=== PATIENT | female | born 1980 | race Hispanic/Latino ===

== ENCOUNTER 2017-09-03 07:52 | Emergency (ER) | payer OTHER ==
[~2017-09-03] VITALS: Ht 157.5 cm; Wt 94.3 kg
[~2017-09-03 07:52] MED LIST: DICYCLOMINE HCL20 MG PO; PROTONIX40 MG/ML PO
[2017-09-03] MEDS ORDERED: KETOROLAC TROMETHAMINE 30 MG/ML VIAL IV STA (08:07)
[2017-09-03 08:35] LABS: BASOPHILS # (AUTO) 0.1 (0.0-0.1); BASOPHILS % 0.4 % (0.0-1.0); EOSINOPHILS # (AUTO) 0.4 (0.0-0.4); EOSINOPHILS % 3.2 % (0.0-6.0); HEMATOCRIT 42.7 % (34.2-44.1); HEMOGLOBIN 14.9 g/dL (12.0-16.0); LYMPHOCYTES # (AUTO) 2.4 (1.0-3.2); MEAN CORPUSCULAR HEMOGLOBIN 30.2 pg (28-32); MEAN CORPUSCULAR HGB CONC 34.9 g/dL (31-35); MEAN CORPUSCULAR VOLUME 86.4 fL (81-99); MONOCYTES # (AUTO) 0.7 (0.2-0.8); MONOCYTES % 5.5 % (4.4-11.3); NEUTROPHILS # (AUTO) 9.7 (2.1-6.9); NEUTROPHILS % 72.7 % (38.7-80.0); PLATELET COUNT 298 x10e3/uL (140-360); RED BLOOD COUNT 4.94 x10e6/uL (3.6-5.1); RED CELL DISTRIBUTION WIDTH 12.5 % (11.7-14.4)
[2017-09-03 08:36] LABS: BILIRUBIN,URINE NEGATIVE (NEGATIVE); KETONES,URINE NEGATIVE (NEGATIVE); LEUKOCYTE ESTERASE ,URINE NEGATIVE (NEGATIVE); NITRITE,URINE NEGATIVE (NEGATIVE); PROTEIN,URINE DIPSTICK NEGATIVE (NEGATIVE); URINE UROBILINOGEN 0.2 mg/dL (0.2 - 1)
[2017-09-03 08:37] LABS: CLARITY,URINE SL CLOUDY (CLEAR); COLOR,URINE STRAW (YELLOW)
[2017-09-03 08:52] LABS: AMORPHOUS SEDIMENT,URINE RARE (FEW); EPITHELIAL CELLS,URINE FEW /LPF; RBC,URINE 0-5 /HPF (0-5)
[2017-09-03 08:53] LABS: BACTERIA,URINE RARE /HPF
[2017-09-03 08:54] LABS: ALANINE AMINOTRANSFERASE 15 IU/L (0-55); ALBUMIN 3.9 g/dL (3.5-5.0); ALBUMIN/GLOBULIN RATIO 0.9 (0.8-2.0); ALKALINE PHOSPHATASE 108 IU/L (40-150); BLOOD UREA NITROGEN 9 mg/dL (7-26); BUN/CREATININE RATIO 12 (6-25); CALCIUM 9.2 mg/dL (8.4-10.2); CARBON DIOXIDE 22 mmol/L (22-29); CHLORIDE 105 mmol/L (98-107); CREATININE, SERUM 0.74 mg/dL (0.57-1.11); EST GLOMERULAR FILTRATION RATE > 60 ML/MIN (60-); GLUCOSE 112 mg/dL (74-118); SODIUM 136 mmol/L (136-145)
[2017-09-03] MEDS ORDERED: ONDANSETRON HCL INJ 2 MG/ML VIAL IV STA (09:17)
--- NOTE | 2017-09-03 09:21 | Diagnostic Imaging Report ---
PROCEDURE: CT ABDOMEN AND PELVIS WITHOUT CONTRAST TECHNIQUE: The abdomen and pelvis were scanned utilizing a multidetector helical scanner from the diaphragm to the lesser trochanter. No intravenous or oral contrast was administered as per physician request. Coronal and sagittal multiplanar reformations were obtained. COMPARISON: None. INDICATIONS: RIGHT FLANK PAIN FINDINGS: ABSENCE OF INTRAVENOUS CONTRAST DECREASES SENSITIVITY FOR DETECTION OF FOCAL LESIONS AND VASCULAR PATHOLOGY. LOWER THORAX: Normal. Small fat containing hernia along the right posterior diaphragm. HEPATOBILIARY: No focal hepatic lesions. No biliary ductal dilatation. Cholecystectomy. SPLEEN: No splenomegaly. PANCREAS: No focal masses or ductal dilatation. ADRENALS: 2.4 cm left adrenal nodule with internal attenuation measurement of 27.2 Hounsfield units. No right adrenal nodule. KIDNEYS/URETERS: No hydronephrosis, stones, or solid mass lesions. Bilateral subcentimeter fat containing lesions are present in the kidneys, consistent with small angiomyolipomas. Minimal bilateral nonspecific perinephric soft tissue inflammatory changes. PELVIC ORGANS/BLADDER: Hysterectomy. Bilateral ovarian cysts. PERITONEUM / RETROPERITONEUM: No free air or fluid. Minimal inflammatory changes are present in the mesentery. LYMPH NODES: No lymphadenopathy. VESSELS: Unremarkable. GI TRACT: No distention or wall thickening. Normal appendix. Moderate amount of retained feces limits intraluminal evaluation of the colon BONES AND SOFT TISSUES: Unremarkable. IMPRESSION: 1. No acute abnormality of the abdomen and pelvis. 2. Indeterminate left adrenal nodule. CT with adrenal mass protocol may provide additional information for further characterization. 3. Bilateral small renal angiomyolipomas. Dictated by: Pedro Hinson M.D. on 09/03/2017 at 9:20 Electronically approved by: Pedro Hinson M.D. on 09/03/2017 at 9:20
[2017-09-03 09:53] VITALS: BP 116/77
== END 2017-09-03 10:31 | disposition home or self-care (01) ==
LOC: ER 07:52
DX: R10.9 Unspecified abdominal pain (principal); N39.0 Urinary tract infection, site not specified
CPT/HCPCS: 36415; 74176; 80053; 81001; 85025; 87086; 99284; J1885; J2405

== ENCOUNTER 2017-09-04 09:22 | Emergency (ER) | payer OTHER ==
[~2017-09-04] VITALS: Ht 157.5 cm; Wt 94.3 kg
--- OUTSIDE RECORDS SUMMARY | 2017-09-04 09:26 | XMS REPORT | Continuity of Care Document ---
Author Author [facility] Organization [facility] Address [address] [place] [address] Phone Unavailable Care Team Providers Care Necktie Stitcher Name Role Phone EDINSON RAJAN M.D. PCP Insurance Providers Guarantor Mildred Sosa I Address [address] [place] [address] Payer [facility] Policy Number [id number] Subscriber's Name Mildred Sosa I Relationship 18 Self / Same As Patient Group Number [id number] Effective Date 17 Advance Directives Directive Response Recorded Date/Time Does the patient have an advance directive? No 12/21/15 9:34pm If yes, is advance directive on file with [facility]? No 12/21/15 9:34pm If not on file with [facility] will patient provide a copy? No 12/21/15 9:34pm Do you have a Directive to Physician? No 09/03/17 8:18am Do you have a Medical Power of Fork Operator? No 09/03/17 8:18am Do you have an out of hospital Do Not Resuscitate Order? No 09/03/17 8:18am Do you have any special needs we should be aware of? No 09/03/17 8:18am Do you have a support person here with you today? No 09/03/17 8:18am Did patient receive Notice of Privacy Practices? Yes 09/03/17 8:18am Did patient receive patient rights and responsibilities? Yes 09/03/17 8:18am Problems Medical Problem Onset Date Status Gall stones 12/21/2015 Acute Medications Current Home Medications Medication Dose Units Route Directions Days Qty Instructions Start Date Dicyclomine Hcl 20 Mg Tablet 20 Mg Oral Three Times A Day as needed for Abdominal Pain Pantoprazole Sod (Protonix) 40 Mg/Ml Susp 40 Mg Oral Before Breakfast 30 Days 12/24/15 Social History Social History Problem Response Recorded Date/Time Onset Date Status Hx Psychiatric Problems No 12/21/2015 9:34pm Not Applicable Not Applicable Hx Eating Disorder No 12/21/2015 9:34pm Not Applicable Not Applicable Hx Substance Use Disorder No 12/21/2015 9:34pm Not Applicable Not Applicable Hx Depression No 12/21/2015 9:34pm Not Applicable Not Applicable Hx Alcohol Use No 12/21/2015 9:34pm Not Applicable Not Applicable Hx Substance Use Treatment No 12/21/2015 9:34pm Not Applicable Not Applicable Hx Physical Abuse No 12/21/2015 9:34pm Not Applicable Not Applicable Smoking Status Start Date Stop Date Never Smoker Hospital Discharge Instructions No hospital discharge instruction information available. Plan of Care Discharge Date 09/03/17 10:31am Disposition HOME, SELF-CARE Condition at Discharge Stable Instructions/Education Provided Abdominal Pain - Adult Urinary Tract Infection - Women Forms Provided Work/School Excuse Prescriptions See Medication Section Referrals EDINSON RAJAN M.D. Order Date: Call for an appointment Address: [address] [place] [address] [phone] Additional Instructions/Education Take medication as prescribed Follow up with PCP in a couple of days without fail Return to ER as needed Drink plenty of fluids Functional Status No functional status information available. Allergies, Adverse Reactions, Alerts Allergen Type Severity Reaction Status Last Updated Bupropion Allergy Unknown Active 11/30/16 Pineapple Allergy Unknown Throat swelling Active 11/30/16 GADOLLNIUM Allergy Intermediate Active 11/30/16 Immunizations No immunization information available. Vital Signs Acute Vital Signs Vital Response Date/Time Pulse Pulse Rate (adult) 95 bpm (60 - 90) 09/03/2017 9:53am Respiratory Rate 18 bpm (12 - 24) 09/03/2017 9:53am Blood Pressure 116/77 mm Hg 09/03/2017 9:53am Height 5 ft 2 in 09/03/2017 8:00am Weight 208 lb 09/03/2017 8:00am Body Mass Index 38.0 kg/m^2 09/03/2017 8:00am Results Laboratory Results Test Name Result Units Flags Reference Collection Date/Time Result Date/ Time Comments Urine Mucus MANY H RARE 11/30/2016 12:01am 11/30/2016 12:34am Urine Test NEGATIVE NEGATIVE 11/30/2016 12:01am 11/30/2016 12:25am Magnesium Level 2.2 MG/DL H 1.3-2.1 11/30/2016 12:01am 11/30/2016 12: 47am Thyroid Stimulating Hormone (TSH) 2.200 uIU/mL 0.350-4.940 11/30/2016 12 :01am 11/30/2016 1:00am White Blood Count 13.31 x10e3/uL H 4.8-10.8 09/03/2017 8:07am 2017 8:56am Red Blood Count 4.94 x10e6/uL 3.6-5.1 09/03/2017 8:07am 09/03/2017 8: 56am Hemoglobin 14.9 g/dL 12.0-16.0 09/03/2017 8:07am 09/03/2017 8:56am Hematocrit 42.7 % 34.2-44.1 09/03/2017 8:07am 09/03/2017 8:56am Mean Corpuscular Volume 86.4 fL 81-99 09/03/2017 8:07am 09/03/2017 8: 56am Mean Corpuscular Hemoglobin 30.2 pg 28-32 09/03/2017 8:07am 09/03/2017 8:56am Mean Corpuscular Hemoglobin Concent 34.9 g/dL 31-35 09/03/2017 8:07am 09/03/2017 8:56am Red Cell Distribution Width 12.5 % 11.7-14.4 09/03/2017 8:07am 2017 8:56am Platelet Count 298 x10e3/uL 140-360 09/03/2017 8:07am 09/03/2017 8: 56am Neutrophils (%) (Auto) 72.7 % 38.7-80.0 09/03/2017 8:07am 09/03/2017 8: 56am Lymphocytes (%) (Auto) 18.0 % 18.0-39.1 09/03/2017 8:07am 09/03/2017 8: 56am Monocytes (%) (Auto) 5.5 % 4.4-11.3 09/03/2017 8:07am 09/03/2017 8: 56am Eosinophils (%) (Auto) 3.2 % 0.0-6.0 09/03/2017 8:09/03/2017 8: 56am Basophils (%) (Auto) 0.4 % 0.0-1.0 09/03/2017 8:0709/03/2017 8:56am IM GRANULOCYTES % 0.2 % 0.0-1.0 09/03/2017 8:09/03/2017 8:56am Neutrophils # (Auto) 9.7 H 2.1-6.9 09/03/2017 8:09/03/2017 8: 56am Lymphocytes # (Auto) 2.4 1.0-3.2 09/03/2017 8:09/03/2017 8:56am Monocytes # (Auto) 0.7 0.2-0.8 09/03/2017 8:09/03/2017 8:56am Eosinophils # (Auto) 0.4 0.0-0.4 09/03/2017 8:09/03/2017 8:56am Basophils # (Auto) 0.1 0.0-0.1 09/03/2017 8:09/03/2017 8:56am Absolute Immature Granulocyte (auto 0.03 x10e3/uL 0-0.1 09/03/2017 8: 09/03/2017 8:56am Urine Color STRAW YELLOW 09/03/2017 8:09/03/2017 8:37am Urine Clarity SL CLOUDY CLEAR 09/03/2017 8:09/03/2017 8:37am Urine Specific [place] 1.010 1.010-1.025 09/03/2017 8:07am 2017 8:37am Urine pH 5 5 - 7 09/03/2017 8:07am 09/03/2017 8:37am Urine Leukocyte Esterase NEGATIVE NEGATIVE 09/03/2017 8:07am 2017 8:37am Urine Nitrite NEGATIVE NEGATIVE 09/03/2017 8:07am 09/03/2017 8:37am Urine Protein NEGATIVE NEGATIVE 09/03/2017 8:07am 09/03/2017 8:37am Urine Glucose (UA) NEGATIVE NEGATIVE 09/03/2017 8:07am 09/03/2017 8: 37am Urine Ketones NEGATIVE NEGATIVE 09/03/2017 8:07am 09/03/2017 8:37am Urine Urobilinogen 0.2 mg/dL 0.2 - 1 09/03/2017 8:07am 09/03/2017 8: 37am Urine Bilirubin NEGATIVE NEGATIVE 09/03/2017 8:07am 09/03/2017 8: 37am Urine Blood TRACE H NEGATIVE 09/03/2017 8:07am 09/03/2017 8:37am Urine WBC NONE /HPF 0-5 09/03/2017 8:07am 09/03/2017 8:54am Urine RBC 0-5 /HPF 0-5 09/03/2017 8:07am 09/03/2017 8:54am Urine Bacteria RARE /HPF NONE 09/03/2017 8:07am 09/03/2017 8:54am Urine Epithelial Cells FEW /LPF NONE 09/03/2017 8:07am 09/03/2017 8: 54am Urine Amorphous Sediment RARE FEW 09/03/2017 8:07am 09/03/2017 8: 54am Sodium Level 136 mmol/L 136-145 09/03/2017 8:07am 09/03/2017 8:55am Potassium Level 4.0 mmol/L 3.5-5.1 09/03/2017 8:07am 09/03/2017 8:55am Chloride Level 105 mmol/L 98-107 09/03/2017 8:07am 09/03/2017 8:55am Carbon Dioxide Level 22 mmol/L 22-29 09/03/2017 8:07am 09/03/2017 8: 55am Anion Gap 13.0 mmol/L 8-16 09/03/2017 8:07am 09/03/2017 8:55am Blood Urea Nitrogen 9 mg/dL 7-09/03/2017 8:09/03/2017 8:55am Creatinine 0.74 mg/dL 0.57-1.11 09/03/2017 8:0709/03/2017 8:55am BUN/Creatinine Ratio 12 6-09/03/2017 8:09/03/2017 8:55am Estimat Glomerular Filtration Rate > 60 ML/MIN 60- 09/03/2017 8: 8:55am Ranges were taken from the National Kidney Disease Education Program and the National Kid[employer] Foundation literature. Reference ranges: 60 or greater: Normal 16-59 (for 3 consecutive months): Chronic kidney disease 15 or less: Kidney failure Glucose Level 112 mg/dL 74-118 09/03/2017 8:0709/03/2017 8:55am Calcium Level 9.2 mg/dL 8.4-10.2 09/03/2017 8:09/03/2017 8:55am Total Bilirubin 0.6 mg/dL 0.2-1.2 09/03/2017 8:0709/03/2017 8:55am Aspartate Amino Transf (AST/SGOT) 15 IU/L 5-34 09/03/2017 8:2017 8:55am Alanine Aminotransferase (ALT/SGPT) 15 IU/L 0-55 09/03/2017 8:07 8:55am Total Protein 8.2 g/dL H 6.5-8.1 09/03/2017 8:09/03/2017 8:55am Albumin 3.9 g/dL 3.5-5.0 09/03/2017 8:0709/03/2017 8:55am Globulin 4.3 g/dL H 2.3-3.5 09/03/2017 8:09/03/2017 8:55am Albumin/Globulin Ratio 0.9 0.8-2.0 09/03/2017 8:09/03/2017 8: 55am Alkaline Phosphatase 108 IU/L 40-150 09/03/2017 8:09/03/2017 8: 55am Procedures Procedure Status Date Provider(s) Computed tomography of brain without radiopaque contrast Active 11/30/[address] of abdomen and pelvis without contrast Active 09/03/17 CORBIN RIGGINS MD Encounters Encounter Location Arrival/Admit Date Discharge/Depart Date Attending Provider Registered Emergency Room [facility] 09/03/17 7:52am CORBIN RIGGINS MD Departed Emergency Room [facility] 11/29/16 10:24pm 11/30 2:59am BRYAN MOORE MD
--- OUTSIDE RECORDS SUMMARY | 2017-09-04 09:26 | XMS REPORT | Clinical Summary ---
Author Author [facility] Address Unknown Phone Unavailable Care Team Providers Care Community Organizer Name Role Phone PCP Unavailable Allergies Active Allergy Reactions Severity Noted Date Comments Gadolinium-Containing Hives, Itching, Shortness High 05/16/2016 Contrast Media Of Breath Pineapple Anaphylaxis, Hives High 05/16/2016 Current Medications Prescription Sig. Disp. Refills Start End Date Status Date ferrous sulfate 325 (65 Take 325 mg by mouth Active FE) MG tablet daily with breakfast. Active Problems Problem Noted Date Allergic reaction to contrast dye, initial encounter 05/17/2016 Family History Relation Name Status Comments Social History Tobacco Use Types Packs/Day Years Used Date Never Smoker Alcohol Use Drinks/Week oz/Week Comments No Sex Assigned at Date Recorded Not on file Last Filed Vital Signs Not on file Plan of Treatment Not on file Results Not on fileafter 09/03/2016
--- OUTSIDE RECORDS SUMMARY | 2017-09-04 09:26 | XMS REPORT ---
Author Author [facility] Address Unknown Phone Unavailable Care Team Providers Care Nurse Head Name Role Phone CORBIN RIGGINS Unavailable Unavailable Problems This patient has no known problems. Allergies, Adverse Reactions, Alerts This patient has no known allergies or adverse reactions. Medications This patient has no known medications. Results Test Description Test Time Test Comments Text Results Atomic Results Result Comments CT ABDOMEN/PELVIS WO [place] [address] Patient Name: MILDRED SOSA I MR #: [id number] : 1980 Age/Sex: 37/F Req #: [id number] Adm Physician: Ordered by: CORBIN RIGGINS MD Report #: [id number] Location: ER Room/Bed: Procedure: [id number] CT/CT ABDOMEN/PELVIS WO Exam Date: 09/03/17 Exam Time: 0834 REPORT STATUS: Signed PROCEDURE: CT ABDOMEN AND PELVIS WITHOUT CONTRAST TECHNIQUE: The abdomen and pelvis were scanned utilizing a multidetector helical scanner from the diaphragm to the lesser trochanter. No intravenous or oral contrast was administered as per physician request. Coronal and sagittal multiplanar reformations were obtained. COMPARISON: None. INDICATIONS: RIGHT FLANK PAIN FINDINGS: ABSENCE OF INTRAVENOUS CONTRAST DECREASES SENSITIVITY FOR DETECTION OF FOCAL LESIONS AND VASCULAR PATHOLOGY. LOWER THORAX: Normal. Small fat containing hernia along the right posterior diaphragm. HEPATOBILIARY: No focal hepatic lesions. No biliary ductal dilatation. Cholecystectomy. SPLEEN: No splenomegaly. PANCREAS: No focal masses or ductal dilatation. ADRENALS: 2.4 cm left adrenal nodule with internal attenuation measurement of 27.2 Hounsfield units. No right adrenal nodule. KIDNEYS/URETERS: No hydronephrosis, stones, or solid mass lesions. Bilateral subcentimeter fat containing lesions are present in the kidneys, consistent with small angiomyolipomas. Minimal bilateral nonspecific perinephric soft tissue inflammatory changes. PELVIC ORGANS/BLADDER: Hysterectomy. Bilateral ovarian cysts. PERITONEUM / RETROPERITONEUM: No free air or fluid. Minimal inflammatory changes are present in the mesentery. LYMPH NODES: No lymphadenopathy. VESSELS: Unremarkable. GI TRACT: No distention or wall thickening. Normal appendix. Moderate amount of retained feces limits intraluminal evaluation of the colon BONES AND SOFT TISSUES: Unremarkable. IMPRESSION: 1. No acute abnormality of the abdomen and pelvis. 2. Indeterminate left adrenal nodule. CT with adrenal mass protocol may provide additional information for further characterization. 3. Bilateral small renal angiomyolipomas. Dictated by: Ana María Farnsworth M.D. on 09/03/2017 at 9:20 Electronically approved by: Ana María Farnsworth M.D. on 09/03/2017 at 9:20 Dictated By: ANA MARÍA FARNSWORTH MD 9 Transcribed By: JUAN on 09/03/17919 COPY TO: CORBIN RIGGINS MD
[2017-09-04 10:16] LABS: STREPTOCOCCUS GRP A ANTIGEN NEGATIVE (NEGATIVE)
[2017-09-04 10:19] LABS: INFLUENZAE A&B ANTIGEN (RAPID) NEGATIVE (NEGATIVE)
[2017-09-04] MEDS ORDERED: SODIUM CHLORIDE 0.9% 1000ML 1,000 ML IV STA (10:39)
[2017-09-04 11:12] LABS: PREGNANCY TEST, URINE NEGATIVE (NEGATIVE)
[2017-09-04 11:15] LABS: BILIRUBIN,URINE NEGATIVE (NEGATIVE); KETONES,URINE NEGATIVE (NEGATIVE); LEUKOCYTE ESTERASE ,URINE NEGATIVE (NEGATIVE); NITRITE,URINE NEGATIVE (NEGATIVE); PROTEIN,URINE DIPSTICK NEGATIVE (NEGATIVE); URINE UROBILINOGEN 0.2 mg/dL (0.2 - 1)
[2017-09-04 11:17] LABS: CLARITY,URINE CLEAR (CLEAR); COLOR,URINE YELLOW (YELLOW)
[2017-09-04 11:26] LABS: BASOPHILS # (AUTO) 0.1 (0.0-0.1); BASOPHILS % 0.4 % (0.0-1.0); EOSINOPHILS # (AUTO) 0.1 (0.0-0.4); EOSINOPHILS % 0.4 % (0.0-6.0); HEMATOCRIT 40.2 % (34.2-44.1); HEMOGLOBIN 13.8 g/dL (12.0-16.0); LYMPHOCYTES # (AUTO) 2.4 (1.0-3.2); LYMPHOCYTES % 18.5 % (18.0-39.1); MEAN CORPUSCULAR HGB CONC 34.3 g/dL (31-35); MEAN CORPUSCULAR VOLUME 87.4 fL (81-99); MONOCYTES # (AUTO) 0.8 (0.2-0.8); MONOCYTES % 6.6 % (4.4-11.3); NEUTROPHILS # (AUTO) 9.5 (2.1-6.9); NEUTROPHILS % 73.8 % (38.7-80.0); PLATELET COUNT 269 x10e3/uL (140-360); RED CELL DISTRIBUTION WIDTH 12.6 % (11.7-14.4)
[2017-09-04 11:39] LABS: BACTERIA,URINE RARE /HPF; EPITHELIAL CELLS,URINE FEW /LPF
[2017-09-04 11:46] LABS: ALANINE AMINOTRANSFERASE 13 IU/L (0-55); ALBUMIN 3.6 g/dL (3.5-5.0); ALBUMIN/GLOBULIN RATIO 0.9 (0.8-2.0); ALKALINE PHOSPHATASE 108 IU/L (40-150); ANION GAP 13.6 mmol/L (8-16); BLOOD UREA NITROGEN 8 mg/dL (7-26); BUN/CREATININE RATIO 11 (6-25); CALCIUM 8.5 mg/dL (8.4-10.2); CARBON DIOXIDE 23 mmol/L (22-29); CHLORIDE 102 mmol/L (98-107); CREATININE, SERUM 0.75 mg/dL (0.57-1.11); EST GLOMERULAR FILTRATION RATE > 60 ML/MIN (60-); GLUCOSE 102 mg/dL (74-118); POTASSIUM 3.6 mmol/L (3.5-5.1); SODIUM 135 mmol/L (136-145)
[2017-09-04] MEDS ORDERED: PENICILLIN G BENZATHINE LA 1.2 MU TBX IM STA (13:24)
[2017-09-04] MEDS ORDERED: DEXAMETHASONE SOD PHOS 10 MG/1 ML VIAL IV ONE (13:30)
[2017-09-04 13:49] VITALS: BP 100/50
== END 2017-09-04 14:23 | disposition home or self-care (01) ==
LOC: ER 09:22
DX: R50.9 Fever, unspecified (principal); J02.0 Streptococcal pharyngitis; K20.9 Esophagitis, unspecified
CPT/HCPCS: 36415; 80053; 81001; 81025; 83518; 85025; 87040; 87070; 87400; 99284; J0561; J1100; J7030

== ENCOUNTER 2022-04-01 13:02 | Emergency (ER) | payer OTHER ==
[~2022-04-01] VITALS: Ht 157.5 cm; Wt 94.3 kg
[2022-04-01] MEDS ORDERED: ACETAMINOPHEN 325 MG TAB PO ONE (14:00)
[2022-04-01] MEDS ORDERED: CELEBREX100 MG PO (17:30)
[2022-04-01 17:50] VITALS: BP 135/59
== END 2022-04-01 17:45 | disposition home or self-care (01) ==
LOC: ER 13:47
DX: S93.492A Sprain of other ligament of left ankle, initial encounter (principal); X50.1XXA Overexertion from prolonged static or awkward postures, initial encounter; Y92.89 Other specified places as the place of occurrence of the external cause
CPT/HCPCS: 99283

== ENCOUNTER 2024-03-13 08:45 | Emergency (ER) | payer OTHER ==
[~2024-03-13] VITALS: Ht 157.5 cm; Wt 108.9 kg
[~2024-03-13 08:45] MED LIST changes: +CELEBREX100 MG PO
[2024-03-13] MEDS: IBUPROFEN 400 MG TAB PO ONE (09:17)
[2024-03-13] MEDS: SODIUM CHLORIDE 0.9% 1000ML 1,000 ML IV STA ×2 (09:17→12:15)
[2024-03-13 09:29] LABS: BASOPHILS % 0.4 % (0.0-1.0); EOSINOPHILS # (AUTO) 0.1 (0.0-0.4); EOSINOPHILS % 1.5 % (0.0-6.0); HEMATOCRIT 44.5 % (34.2-44.1); HEMOGLOBIN 14.4 g/dL (12.0-16.0); LYMPHOCYTES # (AUTO) 1.9 (1.0-3.2); LYMPHOCYTES % 20.2 % (18.0-39.1); MEAN CORPUSCULAR HEMOGLOBIN 29.8 pg (28-32); MEAN CORPUSCULAR HGB CONC 32.4 g/dL (31-35); MEAN CORPUSCULAR VOLUME 92.1 fL (81-99); MONOCYTES # (AUTO) 0.7 (0.2-0.8); MONOCYTES % 7.4 % (4.4-11.3); NEUTROPHILS # (AUTO) 6.5 (2.1-6.9); NEUTROPHILS % 70.3 % (38.7-80.0); PLATELET COUNT 243 x10e3/uL (140-360); RED BLOOD COUNT 4.83 x10e6/uL (3.6-5.1); WHITE BLOOD COUNT 9.24 x10e3/uL (4.8-10.8)
[2024-03-13 09:37] LABS: BILIRUBIN,URINE NEGATIVE (NEGATIVE); CLARITY,URINE CLOUDY (CLEAR); COLOR,URINE YELLOW (YELLOW); GLUCOSE, URINE NEGATIVE (NEGATIVE); KETONES,URINE NEGATIVE (NEGATIVE); LEUKOCYTE ESTERASE ,URINE NEGATIVE (NEGATIVE); NITRITE,URINE NEGATIVE (NEGATIVE); PH,URINE 5.5 (5 - 7); PROTEIN,URINE DIPSTICK NEGATIVE (NEGATIVE); URINE UROBILINOGEN 0.2 mg/dL (0.2 - 1)
[2024-03-13 09:46] LABS: INR 0.94; PARTIAL THROMBOPLASTIN TIME 25.8 seconds (23.8-35.5); PROTHROMBIN TIME 13.1 seconds (11.9-14.5)
[2024-03-13 09:47] LABS: ALANINE AMINOTRANSFERASE 105 IU/L (0-55); ALBUMIN 3.8 g/dL (3.5-5.0); ALBUMIN/GLOBULIN RATIO 0.8 (0.8-2.0); ALKALINE PHOSPHATASE 108 IU/L (40-150); BILIRUBIN,TOTAL 0.4 mg/dL (0.2-1.2); BLOOD UREA NITROGEN < 5 mg/dL (7-26); BUN/CREATININE RATIO 7 (6-25); CHLORIDE 101 mmol/L (98-107); CREATININE, SERUM 0.75 mg/dL (0.57-1.11); EST GLOMERULAR FILTRATION RATE 101 ML/MIN (>=60); GLUCOSE 132 mg/dL (74-118); POTASSIUM 3.9 mmol/L (3.5-5.1); SODIUM 134 mmol/L (136-145); TOTAL PROTEIN 8.3 g/dL (6.5-8.1)
[2024-03-13 10:11] LABS: ANION GAP 9.9 mmol/L (8-16); CARBON DIOXIDE 27 mmol/L (18-33)
[2024-03-13] MEDS: SODIUM CHLORIDE 0.9% 1000ML 1,000 ML IV ONE (10:32)
[2024-03-13 10:36] VITALS: TEMP 98.8
[2024-03-13 12:16] VITALS: PULSE 84; RESP 17
[2024-03-13 12:54] LABS: BACTERIA,URINE FEW /HPF; EPITHELIAL CELLS,URINE MANY /LPF; RBC,URINE 0-5 /HPF (0-5); WBC,URINE (MAN) 0-5 /HPF (0-5)
[2024-03-13 14:52] VITALS: BP 111/79; PULSE 82; RESP 16; O2SAT 100
== END 2024-03-13 15:19 | disposition home or self-care (01) ==
LOC: ER 08:52
DX: R50.9 Fever, unspecified (principal); U07.1 COVID-19; R05.9 Cough, unspecified; R94.31 Abnormal electrocardiogram [ECG] [EKG]
CPT/HCPCS: 0223U; 36415; 71046; 80053; 81001; 83605; 85025; 85610; 85730; 87400; 93005; 99284; J7030